=== PATIENT | female | born 1970 | race Caucasian/White ===

== ENCOUNTER 2017-03-16 11:10 | Observation (INO) | payer OTHER ==
[~2017-03-16] VITALS: Ht 180.3 cm; Wt 152.2 kg
--- NOTE | ~2017-03-16 | CATH ---
Cardiac Diagnostic Report Demographics Patient Name OLY Velazquez Gender Female Date of 1970 Age 46 year(s) Patient Number [id number] Date of Study 03/16/2017 Visit Number [id number] Room Number G6311 [place] [id number] Ht 180.34 cm Wt 153.31 kg Referring Efstratiou Primary Physician Physician Lakia Santiago MD Performing Efstratiou Secondary Physician Physician Lakia Hoover MD Diagnostic Efstratiou Assisting Physician Physician Lakia Hoover MD Interventional Physician Complaint Inspector Physician Findings and Conclusions Diagnostic Findings and Conclusion Angiographically normal coronaries Diagnostic Recommendations Risk factor modification Procedure Description The patient was brought to the diagnostic cardiac catheterization-EP laboratory in the fasting, non-sedated state. Informed consent was obtained in the written and verbal form after the risks and benefits were explained. The patient had no further questions and agreed to proceed. The planned puncture-incision site(s) were shaved and prepped with ChloraPrep and draped in the usual sterile manner. Conscious sedation, supplemental oxygen, and pain control medications were delivered by a registered nurse under physician guidance. Surface ECG rhythm, blood pressure measurement, and pulse oximetry were monitored throughout the procedure. Arterial access. The access site was infiltrated with lidocaine. The vessel was entered with the Seldinger technique. A sheath was advanced into the vessel and used for catheter placement. Selective left coronary angiography. A catheter was advanced into the left coronary vessel ostium under Fluoroscopic guidance. Contrast was injected by hand. Images were obtained in multiple projections. Selective right coronary angiography. A catheter was advanced into the right coronary vessel ostium under fluoroscopic guidance. Contrast was injected by hand. Images were obtained in multiple projections. Left heart catheterization. A catheter was advanced across the aortic valve to the left ventricle under fluoroscopic guidance. Resting hemodynamics were obtained. Arterial artery hemostasis was achieved. The patient was transferred to a regular nursing floor via cart accompanied by a nurse. The patient left the laboratory in stable condition. Diagnostic Cath Status: Urgent Procedure Procedure Type Diagnostic procedure:Angiography:, Coronary Angios w/[facility] Indications: Unstable angina and Chest pain. The procedure was explained in detail to the patient. Risks, complications and alternative treatments were reviewed. Written consent was obtained. Angiographic Findings Dominance: Right Cardiac Arteries and Lesion Findings LMCA: Normal (0% Stenosis). LAD: Normal (0% Stenosis). LCx: Normal (0% Stenosis). RCA: Normal (0% Stenosis). Procedure Data Procedure Date Date: 03/16/2017Start: 03:31 PMEnd: 03:54 PM Entry Locations - Retrograde Percutaneous access was performed through the Right Radial artery (Primary location). A 6 Fr sheath was inserted. Hemostasis was successfully obtained using Mechanical Compression. Procedure Medications Order and Administration + + + +-------+ !Time !Medication !Dosage !Route ! + + + +-------03/16/2017 03:28 PM !Versed !1 mg !I.V. ! + + + +-------03/16/2017 03:31 PM !Oxygen !2 l/min !NC ! + + + +-------03/16/2017 03:31 PM !Fentanyl !50 mcg !I.V. ! + + + +-------+ Devices Used - A6 Fr. BS JR 4 Diag. Catheterwas used for:Right coronary angiography. - A6 Fr. BS JL 3.5 Diag. Catheterwas used for:Left coronary angiography. Contrast Material - Isovue [id number] ml Fluoroscopy Time: Diagnostic: 3:00 minutes. Total: 3:00 minutes. Fluoroscopy Dose: Diagnostic: 901 mGy. Total: 901 mGy. Estimated Blood Loss: 15 ml. Medical History Allergies - ASA. - Latex. - NSAIDS. - Other:(Neomycin, Bacitracin, Polymyxin). Risk Factors The patient risk factors include:obesity, hypertension, orally-treated diabetes mellitus, last creatinine: 0.6 mg/dl, creatinine clearance: 277.53 ml/min and Current/Recent(w/in 1 year) tobacco use. Admission Data Admission Date: 03/16/2017 Admission Time: 01:29 PM Admit Source: Emergency department Insurance Payors: Private health insurance. Clinical Evaluation Leading to Procedure - The patient's CAD presentation was assessed as: Unstable angina. - There were no anginal symptoms. Snapshots Hemodynamics Condition: Rest O2 Consumption: Estimated: 255.31Heart Rate: 66 bpm Pressures (mmHg) +-----+ + !Site !Pressure ! +-----+ + !LV !136/7 ,12 ! +-----+ + !LV !138/7 ,14 ! +-----+ + !AO !122/81 (101) ! +-----+ + !LV !136/3 ,11 ! +-----+ + !AO !116/81 (98) ! +-----+ + Valve Gradients and Areas + +---------+---------+---------+ +---------+ + !Valve !Peak !Mean !Area !Index !Flow !Source ! + +---------+---------+---------+ +---------+ + !Aortic !15 !10 ! ! ! ! ! + +---------+---------+---------+ +---------+ + !Aortic !15 !10 ! ! ! ! ! + +---------+---------+---------+ +---------+ + Shunts Oxygen Values O2 Capacity 201.28 O2 Consumption 255.31 Discharge Data Discharge Date: 03/17/2017 Hospital Status: Inpatient Signatures dtt: Kahlil Snow dtd: 03/16/17 1531 Physician Self Edit
--- NOTE | ~2017-03-16 | ER ---
PATIENT'S NAME: SHANNON ALDRIDGE [facility] AGE: 46 Y [address] ROOM: [place] [address] LOCATION: GPCU ADMIT DATE: 03/16/2017 ER/Outpatient Report DISCHARGE DATE: FAMILY PHYSICIAN: KIMBERLEE GARCÍA MD ATTENDING PHYSICIAN: Flaco CAIN Time of Arrival: 1110 hours. Time of Evaluation: 1113 hours. CHIEF COMPLAINT: Chest pain. HISTORY OF PRESENT ILLNESS: The patient is a 46-year-old female, who presents to the emergency department today with a chief complaint of chest pain. She reports this started initially last night one day prior to arrival. She reports it is worse with exertion. It is a sharp, tightness type pain on the left side of her chest. She did have some radiation to her jaw. She reports she has had a couple episodes today as well. Denies any diaphoresis. No nausea or vomiting. Does report some shortness of breath with this as well. The pain is currently 2/10 in severity. PAST MEDICAL HISTORY: 1. Cjp-uvvmktr-tpgtnjkfu diabetes. 2. Asthma. 3. Dyslipidemia. 4. Factor V Leiden. 5. PACs. 6. DVT, left leg. 7. Reactive airway disease. PAST SURGICAL HISTORY: 1. Steroid epidural, L4-L5 and she has also had placement of [place] filter. 2. She has had rotator cuff. 3. Right shoulder x2. 4. Ankle. 5. Knee. 6. Appendectomy. 7. Cholecystectomy. 8. Left ovary after cyst rupture. 9. Tonsils. SOCIAL HISTORY: The patient smokes half a pack to a pack a day. Drinks alcohol rarely. PATIENT'S NAME: SHANNON ALDRIDGE [facility] AGE: 46 Y [address] ROOM: [address] [address] LOCATION: GPCU ADMIT DATE: 03/16/2017 ER/Outpatient Report DISCHARGE DATE: FAMILY PHYSICIAN: KIMBERLEE GARCÍA MD ATTENDING PHYSICIAN: Flaco CAIN Denies any illicit drug use. ALLERGIES: LATEX, NEOSPORIN, AND CARDIZEM. MEDICATIONS: Please see list. PRIMARY CARE DOCTOR: Kimberlee García MD FIELD OPERATIONS SUPERVISOR: Nadir Crooks MD REVIEW OF SYSTEMS: All systems are reviewed by myself are negative with the exception of those discussed in the HPI and past medical history. PHYSICAL EXAMINATION: VITAL SIGNS: Pulse 72, respiratory rate 16, temperature 98.9, blood pressure 174/85, and oxygen saturation 94% on room air. GENERAL: The patient is a 46-year-old female, who appears stated age, in no acute distress. Obese. HEENT: Normocephalic and atraumatic. Pupils are equal, round, and reactive to light and accommodation. Extraocular motions are intact. Nares are patent bilaterally. TMs are clear. Oropharynx is clear. NECK: Supple. There is no nuchal rigidity. No JVD. CARDIOVASCULAR: Regular rate and rhythm. No murmurs, rubs, or gallops. LUNGS: Clear to auscultation bilaterally. No wheezes, rales, or rhonchi. ABDOMEN: Soft, nontender, and nondistended. No rebound, rigidity, or guarding. MUSCULOSKELETAL: The patient moves all 4 extremities. 5/5 muscle strength. SKIN: Warm and dry. There are no rashes or lesions noted. LABORATORY DATA AND IMAGING STUDIES: Labs and x-rays are obtained. EKG is obtained, interpreted by myself, at 1125 hours shows sinus rhythm with a rate of 71, normal axis, normal interval. No ST elevation, ST depression, or T-wave inversions. CBC is normal except for a white blood cell count of 12.3. PTT is 35, PT is 17.5, and INR is 1.66. D- dimer is normal. CMP is unremarkable. Alkaline phosphatase is normal. AST is 47, and ALT is normal. Cardiac enzymes are normal. Magnesium is normal. ProBNP is normal. Chest x-ray shows no acute process. IMPRESSION: 1. Chest pain, rule out acute coronary syndrome. PATIENT'S NAME: SHANNON ALDRIDGE [facility] AGE: 46 Y [address] ROOM: [address] [address] [facility]: [facility] ADMIT DATE: 03/16/2017 ER/Outpatient Report DISCHARGE DATE: FAMILY PHYSICIAN: KIMBERLEE GARCÍA MD ATTENDING PHYSICIAN: Flaco CAIN 2. Initial visit. EMERGENCY DEPARTMENT COURSE: The patient was brought back to the examination room. Seen and evaluated by myself. IV was established. Laboratory analysis and imaging are obtained as described above. The patient is given aspirin orally. She is given nitroglycerin tablet with resolution of the patient's symptoms. I have discussed the case with Dr. Cain, who has seen and evaluated the patient down here in the emergency department. We have discussed the case. Dr. Cain has discussed the case with Dr. Snow, the test evaluator. Dr. Snow has seen and evaluated the patient down here in the emergency department. He will proceed directly to cardiac catheterization. Please see their dictations. DISPOSITION: The patient is admitted under the care of the Hospitalist Service in consultation with Dr. Snow. DO NESTOR COLEMAN/modl /[id number] d: 03/16/172141 t: 03/20/17 1023, OUTPATIENT REPORT
--- NOTE | ~2017-03-16 | CON ---
PATIENT'S NAME: SHANNON ALDRIDGE [facility] AGE: 46 Y [address] ROOM: [place] [address] LOCATION: GPCU ADMIT DATE: 03/16/2017 Consultation DISCHARGE DATE: FAMILY PHYSICIAN: KIMBERLEE GARCÍA MD ATTENDING PHYSICIAN: Flaco DOHERTY DATE OF CONSULTATION: 03/17/2017 REFERRING PHYSICIAN: Kahlil Snow MD REASON FOR CARDIOLOGY CONSULT: Chest pain. HISTORY OF PRESENT ILLNESS: This is a 46-year-old female who presented to the [facility] Emergency Department on 03/16/2017 with complaints of chest pain that radiated from her left chest up into her jaw. She described it as tightness and it became worse with activity. She had some improved relief from the pain with nitroglycerin. She has a past medical history including factor V Leiden deficiency, DVT, and PE with an IVC filter. She also has hypertension, diabetes mellitus type 2, hyperlipidemia, asthma, obstructive sleep apnea, and obesity. She was evaluated in the emergency department by Dr. Snow and plan was made to take her urgently to the catheterization suite for evaluation of coronary anatomy. She is currently status post heart catheterization without intervention and had normal coronary anatomy and flow. At this time, she is resting comfortably in bed and has no further complaints of chest pain. PAST MEDICAL HISTORY: As listed in the HPI. PAST SURGICAL HISTORY: 1. Appendectomy. 2. Tonsillectomy. 3. Cholecystectomy. 4. Oophorectomy. FAMILY HISTORY: Positive history of factor V Leiden disorder. Her father also had a history of coronary artery disease. SOCIAL HISTORY: The patient is a current daily smoker. She smokes 6 to 8 cigarettes per day and has done so for the last 15 years. She also admits to alcohol use on one day per week, normally she will have only 1 drink. No history of illicit drug PATIENT'S NAME: SHANNON ALDRIDGE [facility] AGE: 46 Y [address] ROOM: [place] [address] LOCATION: GPCU ADMIT DATE: 03/16/2017 Consultation DISCHARGE DATE: FAMILY PHYSICIAN: KIMBERLEE GARCÍA MD ATTENDING PHYSICIAN: CHAS,Dagmawe use. CURRENT MEDICATIONS: 1. Coumadin. 2. Dulera 2 puffs inhaled twice daily. 3. Spiriva 2 puffs inhaled daily. 4. Aspirin 81 mg p.o. daily. 5. Chantix 1 mg p.o. twice daily. 6. Coreg 9.375 mg p.o. twice daily. 7. Lipitor 40 mg p.o. daily in the evening. 8. Plexus supplement. 9. X-Factor daily. 10. Protonix 40 mg p.o. daily in the evening. 11. NovoLog subcu on a mild sliding scale per a.c. and h.s. Accu-Cheks. MEDICATION ALLERGIES: 1. NSAIDS causing esophageal erosion. 2. Aspirin intolerance due to her previous history of esophageal erosions. 3. Neomycin causing blisters. REVIEW OF SYSTEMS: Pertinent positives of review of systems are listed in HPI. All other review of systems evaluated and negative. PHYSICAL EXAMINATION: VITAL SIGNS: Temperature 97.8, pulse 65, respirations 16, blood pressure 137/73, O2 saturation 93% on 2 L nasal cannula. The patient weighs 152.2 kilograms. SKIN: [place], warm, and dry. EYES: Sclerae clear. No xanthelasmas. ENT: Oral mucosa is pink and moist. No jugular venous distention or carotid bruits. CHEST: Respirations are even and unlabored. Lungs are clear to auscultation. Lung sounds are diminished to bilateral lower lobes. HEART: Regular rate and rhythm. Normal S1 and S2. No murmurs, rubs, or gallops. ABDOMEN: Soft, nontender. MUSCULOSKELETAL: Gait is normal. EXTREMITIES: Peripheral pulses palpable. No clubbing, cyanosis, or edema. Does have noted lower extremities venous staining. PSYCHIATRIC: Alert and oriented. Mood and affect are appropriate. IMPRESSION AND PLAN: Per Dr. Snow: 1. Unstable angina and chest pain. Currently status post selective coronary PATIENT'S NAME: SHANNON ALDRIDGE [facility] AGE: 46 Y [address] ROOM: [address] [place], [place] [address] [facility] ADMIT DATE: 03/16/2017 Consultation DISCHARGE DATE: FAMILY PHYSICIAN: KIMBERLEE GARCÍA MD ATTENDING PHYSICIAN: Flaco DOHERTY angiography without coronary intervention. She is on aspirin, beta- mitchell, and statin. 2. History of pulmonary embolism with long-term anticoagulation with Coumadin and has an IVC filter in place. 3. History of Factor 5 Leiden disorder. 4. Hyperlipidemia. 5. Obstructive sleep apnea. 6. Diabetes mellitus. We will continue to monitor, evaluate, and treat as appropriate. Thank you for this consult. Thank you for allowing [facility] to interact in the care of this patient. GA RIVAS APRN FOR ANA-MD BRENDA DUDLEY/modl /[id number] d: 03/17/17 0905 t: 03/27/17 1250, CONSULTATION REPORT
--- NOTE | ~2017-03-16 | ECHO ---
Transthoracic Echocardiography Report (TTE) Demographics Patient Name SHANNON ALDRIDGE Date of Study 03/16/2017 Patient Number [id number] Visit Number [id number] Date of 1970 Room Number G6311 Gender Female Number Age 46 year(s) Referring Lupe Santiago MD Business Education Professor Ade RVT, RDCS Physician Renetta Physician Interpreting Efstratiou Panayotis A Tool Crib Lead Physician Supervising Ordering Efstratiou Panayotis A MD/MLP Physician Nurse Stress Warp Knitter Helper Conclusions Contractility Score Summary Normal Left Ventricular contractility was noted. Summary The estimated left ventricular ejection fraction is 60-65%. The left ventricle is mildly dilated . Moderate concentric left ventricular hypertrophy. Diastolic assessment reveals Grade I diastolic dysfunction. The left atrium is mildly dilated. Borderline right atrial enlargement. Procedure Type of Study TTE procedure:2D Echocardiogram, M-Mode, Doppler , Color Doppler. Procedure Date Date: 03/16/2017 Start: 05:12 PM Study Location: Inpatient Portable Technical Quality: Adequate visualization Indications:Chest pain. Appropriate Use Criteria: 9 Patient Status: Routine HR: 66 bpm BP: 136/84 mmHg Allergies - ASA. - Latex. - NSAIDS. - Other:(Neomycin, Bacitracin, Polymyxin). M-Mode/2D Measurements LV Diastolic Dimension: 5.41 cm LV Systolic Dimension: 3.58 cm LV Septum Diastolic: 1.56 cm LV PW Diastolic: 1.41 cm AO Root Dimension: 2.2 cm Cardiac Output: 4.51 l/min AV Cusp Separation: 1.9 cm RV Diastolic Dimension: 2.72 cm LA volume: 58 ml LVOT: 1.9 cm LVOT VTI: 24.1 cm TAPSE: 3.92 cm LV Stroke volume: 68.3 ml Doppler Measurements AV Peak Velocity: 1.19 m/s MV Peak E-Wave: 0.73 m/s AV Peak Gradient: 5.66 mmHg MV Peak A-Wave: 0.89 m/s AV Mean Gradient: 4 mmHg MV E/A Ratio: 0.82 LVOT Peak Velocity: 1.06 m/s MV P1/2t: 78 msec TR Gradient:11.83 mmHg PV Peak Velocity: 0.75 m/s Estimated RAP:8 mmHg PV Peak Gradient: 2.26 mmHg Estimated RVSP: 20 mmHg Estimated PASP: 19.83 mmHg E' Septal Velocity: 0.07 m/s A' Septal Velocity: 0.12 m/s E' Lateral Velocity: 0.08 m/s A' Lateral Velocity: 0.11 m/s Findings Left Ventricle The left ventricle is mildly dilated . Moderate concentric left ventricular hypertrophy. Diastolic assessment reveals Grade I diastolic dysfunction. Right Ventricle Mildly dilated right ventricle. Normal right ventricular systolic performance. Left Atrium The left atrium is mildly dilated. Right Atrium Borderline right atrial enlargement. Mitral Valve Trivial mitral regurgitation by color Doppler. Aortic Valve Normal aortic valve structure and function. Tricuspid Valve Trivial tricuspid regurgitation by color Doppler. Pulmonic Valve The pulmonic valve is not well visualized. Pericardial Effusion No evidence of pericardial effusion. Pleural Effusion No evidence of pleural effusion. Contractility Score LV regional wall motion:(0-Non visualized 1-Normal 2-Hypokinesis 3-Akinesis 4-Dyskinesis 5-Aneurysm) Signature dtt: Kahlil Snow dtd: 03/16/17 1462 Physician Self Edit
--- NOTE | ~2017-03-16 | HP ---
PATIENT'S NAME: RAMIREZ ALDRIDGEELLE Marcus [facility] AGE: 46 Y [address] ROOM: [place] [address] LOCATION: GPCU ADMIT DATE: 03/16/2017 History & Physical DISCHARGE DATE: FAMILY PHYSICIAN: KIMBERLEE GARCÍA MD ATTENDING PHYSICIAN: Flaco DOHERTY DATE OF SERVICE: CHIEF COMPLAINT: Chest pain. HISTORY OF PRESENT ILLNESS: The patient is a 46-year-old female with past medical history of hypertension, diabetes mellitus type 2, factor V Leiden with DVT and PE with IVC filter, hyperlipidemia, asthma, and obesity, who presents here with chest pain. The patient reports that she experienced chest pain this morning. She described chest pain as left-sided tightness, radiating to the jaw, and worsened by activity. The patient reports that chest pain improved with nitroglycerin. The patient is currently chest pain-free and maximum chest pain was 6/10. The patient denies fever, chills, cough, abdominal pain, nausea, diarrhea, dizziness, and vision change. PAST MEDICAL HISTORY: 1. Hypertension. 2. Diabetes mellitus type 2. 3. Factor V Leiden. 4. History of PE and DVT. 5. Hyperlipidemia. 6. Asthma. 7. Obesity. 8. Obstructive sleep apnea. PAST SURGICAL HISTORY: 1. Tonsillectomy. 2. Cholecystectomy. 3. Appendectomy. 4. Oophorectomy. 5. History of coronary angiogram. FAMILY HISTORY: Positive for factor V Leiden. Father had history of coronary disease at age 60. SOCIAL HISTORY: The patient is positive for smoking. 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 ROOM: [address] [address] LOCATION: GPCU ADMIT DATE: 03/16/2017 History & Physical DISCHARGE DATE: FAMILY PHYSICIAN: KIMBERLEE GARCÍA MD ATTENDING PHYSICIAN: Flaco DOHERTY [facility]. MEDICATIONS: See MAR. REVIEW OF SYSTEMS: All systems have been reviewed and are negative, except for what I mentioned in the HPI. PHYSICAL EXAMINATION: VITAL SIGNS: Afebrile, blood pressure 150/81, heart rate 72, saturating 95% on room air. GENERAL APPEARANCE: The patient alert and awake, in no acute distress. HEENT: Head: Normocephalic, atraumatic. Nose: No nasal discharge. Ears: No ear discharge. Eyes: Extraocular muscles intact. CHEST: Clear to auscultation bilaterally. HEART: Regular rate and rhythm. No murmurs, rubs, or gallops. ABDOMEN: Soft, nontender, and nondistended. Bowel sounds present. SKIN: Bilateral lower extremity venous stasis changes. MUSCULOSKELETAL: Range of motion intact. DRUM MAKER: The patient alert and oriented x3. Motor and sensory grossly intact. LABORATORY DATA: Troponin x1 negative. White blood cell count of 12.3, hemoglobin of 12.8, platelet of 265. Sodium of 139, potassium of 4, bicarb 24, creatinine of 0.6, INR of 1.66. IMAGING: EKG shows normal sinus rhythm. No ST and T-wave changes concerning for ischemia. Negative D-dimer. ASSESSMENT AND PLAN: 1. Typical chest pain. The patient is a 46-year-old female with past medical history of hypertension, diabetes mellitus type 2, factor V Leiden, history of pulmonary embolism and deep venous thrombosis, hypertension, and obesity, who presents here with typical chest pain. Due to the patient's comorbid condition and high pretest probability, Cardiology was consulted. Discussed case with Cardiology. The patient is scheduled for cardiac cath this afternoon. We will follow the cardiac cath results closely. 2. Diabetes mellitus type 2. We will hold Glucophage. Due to cath, we will PATIENT'S NAME: SHANNON ALDRIDGE [facility] AGE: 46 Y [address] ROOM: [place] [address] LOC[facility]: [facility] ADMIT DATE: 03/16/2017 History & Physical DISCHARGE DATE: FAMILY PHYSICIAN: KIMBERLEE GARCÍA MD ATTENDING PHYSICIAN: Flaco DOHERTY start the patient on sliding scale insulin. 3. History of pulmonary embolism and deep venous thrombosis with factor V Leiden. Soon after the cardiac cath, we will reassess starting her on Coumadin. 4. Hyperlipidemia. We will continue statin. 5. Asthma. Continue home regimen. 6. Obstructive sleep apnea. We will continue CPAP. 7. History of tobacco use. Greater than 3 minutes was spent on smoking cessation. The patient is currently not ready to stop and is currently on Chantix. We will continue Chantix. 8. Obesity, ongoing. Greater than 30 minutes was spent on patient care. Assessments and plan were discussed with the patient and Cardiology. We will admit the patient. The patient is scheduled for coronary angiogram. MD RITU WALKER/chelly /[id number] D: [id number] T: [id number] HISTORY & PHYSICAL
--- NOTE | ~2017-03-16 | DS ---
PATIENT'S NAME: SHANNON ALDRIDGE [facility] AGE: 46 Y [address] ROOM: [facility] [place], [place] [address] LOCATION: GPCU ADMIT DATE: 03/16/2017 Discharge Summary DISCHARGE DATE: 03/17/2017 FAMILY PHYSICIAN: Jack Andrade MD ATTENDING PHYSICIAN: Ant Sam PRINCIPAL DIAGNOSIS: Chest pain with normal coronary. SECONDARY DIAGNOSES: 1. Type 2 diabetes on insulin. 2. Factor V Leiden. 3. History of pulmonary embolism. She is status post IVC filter placement in 1993. 4. Morbid obesity. HOSPITAL COURSE: This is a 46-year-old lady with above mentioned past medical history, who presented to the emergency department with chest pain. Initial evaluation revealed no significant ST-T wave changes and negative cardiac biomarkers. Cardiology was consulted given the typical nature of chest pain and risk factors. Cardiology did catheterization on this lady and per verbal report, she had normal coronaries. She was discharged from the hospital the next day. No medication changes were made. She was given a shot of Lovenox therapeutic before leaving the hospital and she was advised to take Lovenox until the INR becomes 2-3. Her INR on the day of the discharge was 1.6. Her hemoglobin A1c was 8.4 in the hospital, which have risen from the past. She is on Trulicity as well as metformin. We will advise follow up with Dr. Andrade. DIET: Diabetic diet. ACTIVITY: As tolerated. MEDICATIONS: No changes to home medications. MD NIYAH MARIE/chelly /[id number] d: 03/17/17 1218 t: 03/27/17 1509, DISCHARGE SUMMARY
[~2017-03-16 11:10] MED LIST: ALBUTEROL2.5 MG/0.5 INH; COREG6.25 MG PO; COUMADIN ** IA5 MG PO; COUMADIN **IA7.5 MG PO; GLUCOPHAGE1000 MG PO; GLUCOPHAGE500 MG PO; HUMIBID LA (MU600 MG PO; MEDROL4 MG PO
[2017-03-16 11:48] LABS: BASOPHIL # 0.1 K/uL (0.0-0.2); BASOPHIL % 0.8 %; EOSINOPHIL # 0.4 K/uL (0.0-0.5); EOSINOPHIL % 3.1 %; HEMATOCRIT 45.3 % (33.0-46.0); HEMOGLOBIN 14.8 g/dL (10.0-15.0); IMMATURE GRANULOCYTE # 0.1 K/uL (0.0-0.3); IMMATURE GRANULOCYTE % 0.7 %; LYMPHOCYTE # 3.1 K/uL (0.8-4.0); LYMPHOCYTE % 25.3 %; MCH 27.3 pg (27.0-34.0); MCHC 32.7 gm/dL (32.0-36.5); MCV 83.6 fl (83.0-98.0); MONOCYTE # 0.9 K/uL (0.0-1.0); MONOCYTE % 7.1 %; MPV 9.6 fl (9.4-12.4); NEUTROPHIL # (ANC) 7.8 K/uL (1.8-7.8); NRBC % 0 /100WBC (0-0.00); PLATELET COUNT 265 K/uL (150-450); RBC 5.42 M/uL (3.50-5.50); RDW-CV 16.8 % (11.9-14.6); WBC 12.3 K/uL (4.0-11.0)
[2017-03-16 12:00] LABS: INR - (THERAPEUTIC) 1.66 (0.92-1.07); PROTIME 17.5 SECONDS (9.8-11.4); PTT 35 SECONDS (25-32)
[2017-03-16 12:25] LABS: ALBUMIN 3.4 gm/dL (3.5-5.0); ALK PHOS 126 IU/L (33-138); ALT 66 IU/L (12-78); AST 47 IU/L (10-40); BLOOD UREA NITROGEN 5 mg/dL (6-24); CALCIUM 8.9 mg/dL (8.5-10.5); CHLORIDE 105 mMol/L (96-110); CO2 24 mMol/L (22-32); CPK 95 IU/L (21-215); CREATININE 0.6 mg/dL (0.5-1.1); ESTIMATED GFR (MDRD EQUATION) > 60; MAGNESIUM 2.2 mg/dL (1.8-2.6); SODIUM 139 mMol/L (135-145); TOTAL BILIRUBIN 0.5 mg/dL (0.0-1.5); TOTAL PROTEIN 6.9 g/dL (6.0-8.4)
[2017-03-16 14:07] LABS: CPK 93 IU/L (21-215)
[2017-03-16] MEDS ORDERED: CHANTIX1 MG PO (18:15)
[2017-03-16] MEDS ORDERED: SPIRIVA RESPIMAT4 G1 INH (18:15)
[2017-03-16] MEDS ORDERED: LIPITOR20 M1 PO (18:16)
[2017-03-16] MEDS ORDERED: PROAIR HFA8.5 GM INH (18:16)
[2017-03-16] MEDS ORDERED: TRULICITY0.75 MG/0. SUB-Q (18:17)
[2017-03-16] MEDS ORDERED: SYMBICORT 16010.2 GM INH (18:18)
[2017-03-16] MEDS ORDERED: PLEXUS SUPPLEMENTS PO (18:20)
[2017-03-16] MEDS ORDERED: X FACTOR PO (18:21)
--- NOTE | 2017-03-16 19:55 | NUR ---
Patient is a 46 year old woman who presented to ER with shortness of breath and left sided chest pain that radiated up the left jaw. Patient was given 4 baby aspirins and 1 nitro and pain subsided. Prior to arriving to PCU patient was taken to lab instructor. Right radial wrist approach, site is soft with good pulse. No intervention in lab instructor. 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 Patient stated that she does use CPAP at night and family will bring it in. Patient has type 2 diabetes, non insulin at home. Patient is alert and oriented X 3. ER placed peripheral IV to right hand. Vitals upon arrival to PCU 160/95, HR 73, O2 93, Temp 98.2, RR 16. Up ad marysol in room.
--- NOTE | 2017-03-17 04:07 | NUR ---
Significant Event: Patient A/Ox3. VSS on RA/home CPAP. Patient is up independently. No complaints of chest pain. R) radial band removed and replaced with gauze and coban. site is soft. CSM WNL. IV to R) hand is SL. HR 60s. SBP 130s-150s. Follow up: Home today?
[2017-03-17 05:31] LABS: BASOPHIL # 0.1 K/uL (0.0-0.2); BASOPHIL % 0.8 %; EOSINOPHIL # 0.5 K/uL (0.0-0.5); HEMATOCRIT 44.4 % (33.0-46.0); HEMOGLOBIN 14.3 g/dL (10.0-15.0); IMMATURE GRANULOCYTE # 0.1 K/uL (0.0-0.3); IMMATURE GRANULOCYTE % 0.6 %; LYMPHOCYTE # 3.5 K/uL (0.8-4.0); LYMPHOCYTE % 30.3 %; MCH 27.5 pg (27.0-34.0); MCHC 32.2 gm/dL (32.0-36.5); MCV 85.4 fl (83.0-98.0); MONOCYTE # 0.8 K/uL (0.0-1.0); MONOCYTE % 7.3 %; MPV 9.6 fl (9.4-12.4); NEUTROPHIL # (ANC) 6.6 K/uL (1.8-7.8); NRBC % 0 /100WBC (0-0.00); PLATELET COUNT 240 K/uL (150-450); RDW-CV 16.8 % (11.9-14.6); WBC 11.5 K/uL (4.0-11.0)
[2017-03-17 05:45] LABS: INR - (THERAPEUTIC) 1.62 (0.92-1.07); PROTIME 17.1 SECONDS (9.8-11.4)
[2017-03-17 05:50] LABS: ALBUMIN 3.3 gm/dL (3.5-5.0); ALK PHOS 116 IU/L (33-138); ALT 61 IU/L (12-78); ANION GAP 16.1 (10.0-19.0); AST 37 IU/L (10-40); CALCIUM 8.9 mg/dL (8.5-10.5); CHLORIDE 105 mMol/L (96-110); CO2 25 mMol/L (22-32); CREATININE 0.6 mg/dL (0.5-1.1); ESTIMATED GFR (MDRD EQUATION) > 60; POTASSIUM 4.1 mMol/L (3.7-5.1); SODIUM 142 mMol/L (135-145); TOTAL BILIRUBIN 0.6 mg/dL (0.0-1.5); TOTAL PROTEIN 6.5 g/dL (6.0-8.4)
[2017-03-17 05:55] LABS: BLOOD UREA NITROGEN 8 mg/dL (6-24)
--- NOTE | 2017-03-17 10:47 | NUR ---
Introduced self and role of care management to patient. [place] her 13 year old son. She plans home today. Denies discharge needs at this time.
[2017-03-17] MEDS ORDERED: LOVENOX 3030 MG/0.3 SUB-Q (11:13)
--- NOTE | 2017-03-17 11:56 | NUR ---
PATIENT A/OX3, VSS ON ROOM AIR. PT. IS UP AD YANETH IN ROOM, WALKS HALLS SEVERAL TIMES THROUGHOUT SHIFT. RIGHT RADIAL HEART CATH SITE HAS NO HEMATOMA OR OOZING NOTED TO SITE, DRESSING CHANGED TO BAND-AID ONLY. PT. IS IN A BIG HURRY TO GET HOME AND TO HAVE D/C PAPERWORK DONE. DISMISSAL INSTRUCTIONS AND POST RADIAL CATH INSTRUCTIONS GONE OVER WITH PATIENT, NO FURTHER QUESTIONS AT THIS TIME, PATIENT IS KNOWLEDGEABLE ALREADY. PATIENT REFUSED LOVENOX SHOT AND 1100 ACCUCHECK. ALL BELONGINGS SENT HOME WITH PATIENT. IV REMOVED FOR RIGHT HAND WITHOUT COMPLICATION. DIABETES ASSESSMENT SHEET FILLED OUT BY PATIENT & A COPY WAS GIVEN AT DISMISSAL.
== END 2017-03-17 11:39 | disposition disaster alternative care site (69) ==
LOC: GMED 11:10 → GPCU 13:29
PROVIDERS: Emergency Medicine; Internal Medicine Cardiovascular Disease; ADMIT Internal Medicine
DX: I20.0 Unstable angina (principal); E11.9 Type 2 diabetes mellitus without complications; I10 Essential (primary) hypertension; E78.5 Hyperlipidemia, unspecified; D68.51 Activated protein C resistance; J45.909 Unspecified asthma, uncomplicated; G47.33 Obstructive sleep apnea (adult) (pediatric); F17.210 Nicotine dependence, cigarettes, uncomplicated; E66.01 Morbid (severe) obesity due to excess calories; Z68.42 Body mass index [BMI] 45.0-49.9, adult; Z86.711 Personal history of pulmonary embolism; Z91.040 Latex allergy status; Z88.5 Allergy status to narcotic agent; Z90.49 Acquired absence of other specified parts of digestive tract; Z98.890 Other specified postprocedural states
CPT/HCPCS: C1894; G0378; J1644; J2250; J3010; J7030

== ENCOUNTER → 2017-05-01 | Outpatient (CLI) | payer OTHER ==
[~2017-05-01] MED LIST changes: +CHANTIX1 MG PO; +LIPITOR20 M1 PO; +LOVENOX 3030 MG/0.3 SUB-Q; +PLEXUS SUPPLEMENTS PO; +PROAIR HFA8.5 GM INH; +SPIRIVA RESPIMAT4 G1 INH; +SYMBICORT 16010.2 GM INH; +TRULICITY0.75 MG/0. SUB-Q; +X FACTOR PO
== END | disposition disaster alternative care site (69) ==
LOC: GBCOE 15:21
DX: Z12.31 Encounter for screening mammogram for malignant neoplasm of breast (principal)
CPT/HCPCS: G0202

== ENCOUNTER 2017-05-27 20:51 | Emergency (ER) | payer OTHER ==
--- NOTE | ~2017-05-27 | ER ---
PATIENT'S NAME: SHANNON ALDRIDGE [facility] AGE: 47 Y [address] ROOM: [place] [address] LOCATION: [facility] ADMIT DATE: 05/27/2017 ER/Outpatient Report DISCHARGE DATE: 05/27/2017 FAMILY PHYSICIAN: Jack Andrade MD ATTENDING PHYSICIAN: Joseph Castellanos Time of Arrival/Admission: 2050 hours. Time of Evaluation: 2114 hours. CHIEF COMPLAINT: Fever, fatigue. HISTORY OF PRESENT ILLNESS: Shannon is a 47-year-old, female, who presents to the emergency room with a fever intermittently since this past Monday along with increased fatigue, achiness to her neck, and just having some general malaise. The patient did see her primary care physician, Dr. Andrade yesterday, he ran some labs in which her white blood cell count was within normal limits, but she reports her liver enzymes were mildly elevated. He did want her to return on Monday, and go to the ER sooner if anything that was more concerning. The patient reports earlier today she had a fever of 102; upon presentation, it was 100.7. The patient was concerned with the fevers not going down. The patient is having mild headaches particularly when the fever goes up, myalgias, some generalized neck pain, chills, and fatigue. She denies any cold symptoms, sore throat, nasal drainage, abdominal pain, nausea, vomiting, and/or diarrhea. The patient has not had any recent travel, did attend the fair last Monday, but other than that, has had a normal routine. She currently is on Coumadin in which Dr. Andrade adjusted yesterday as her level was subtherapeutic. He did raise it to 7.5 mg daily. The patient is a type 2 diabetic, non-insulin dependent. Her hemoglobin A1c yesterday was 8.1. She did not check her sugars yesterday into today. PAST MEDICAL HISTORY: 1. Hypertension. 2. Type 2 diabetes mellitus, non-insulin dependent. 3. Factor V Leiden. 4. History of PE and DVT. 5. Hyperlipidemia. 6. Asthma. 7. Morbid obesity. 8. Obstructive sleep apnea, currently does wear a CPAP. 9. Postoperative tonsillectomy. 10. Postoperative cholecystectomy. 11. Postoperative appendectomy. 12. Postoperative oophorectomy. PATIENT'S NAME: SHANNON ALDRIDGE [facility] AGE: 47 Y [address] ROOM: [place] [address] LOCATION: ED ADMIT DATE: 05/27/2017 ER/Outpatient Report DISCHARGE DATE: 05/27/2017 FAMILY PHYSICIAN: Jack Andrade MD ATTENDING PHYSICIAN: Joseph Castellanos 13. Postoperative heart catheterization, February 2017 that was negative. ALLERGIES: 1. CARDIZEM. 2. NEOSPORIN. CURRENT MEDICATIONS: Please see her medication list per the nurse's note. Her Coumadin was raised to 7.[address] Andrade as of yesterday 05/26/2017. She has not taken her Coumadin as of today yet. SOCIAL HISTORY: The patient is a smoker, about 1/2 to 1 pack per day. She tells myself she is trying to cut down. Alcohol use is rare, denies any illicit drug use. FAMILY HISTORY: There is a family history of factor V Leiden. Father had a history of coronary artery disease. REVIEW OF SYSTEMS: All systems were reviewed by myself and were negative with the exception of those noted in the HPI. The patient denies any dizziness, chest pain, shortness of breath, vertigo, or visual changes. PHYSICAL EXAMINATION: VITAL SIGNS: Current temperature is 100.7, pulse is 97, respirations 16, and blood pressure initially 176/100, rechecked and it was much improved. She is 93% on room air. GENERAL APPEARANCE: Shannon is alert oriented x4, cooperative, in no acute distress. SKIN: Overall is within normal limits. There are no rashes, bug bites, or other concerning lesions. She denies any of these over the past week. HEENT: Eyes; sclerae are not icteric. Pupils equal, round, and reactive to light. EOMs intact. Ears; ear canals are clear. TMs are clear with no redness or effusions noted. Nares are patent. Mouth and Throat; oropharynx is within normal limits. Tongue may be a little dry. It is midline. NECK: Supple, no lymphadenopathy. No thyromegaly appreciated. The patient has full range of motion of her neck. There is no nuchal rigidity noted. She does feel some mild tenderness into her muscles around her neck. CHEST AND LUNGS: Lung sounds are clear throughout. No wheezing or abnormal breath sounds noted. HEART: Regular rhythm, no murmurs appreciated. ABDOMEN: Obese, soft. With soft and deep palpation, there is no pain elicited. No masses, no organomegaly. No CVA tenderness present. EXTREMITIES: Lower extremities, the patient has no lower leg edema. PATIENT'S NAME: SHANNON ALDRIDGE [facility] AGE: 47 Y [address] ROOM: [place] [address] LOCATION: [facility] ADMIT DATE: 05/27/2017 ER/Outpatient Report DISCHARGE DATE: 05/27/2017 FAMILY PHYSICIAN: Jack Andrade MD ATTENDING PHYSICIAN: Joseph Castellanos NEUROLOGIC: Hand grasp equal bilaterally, follows all commands with no focal deficits noted. Gait is steady, normal. LABORATORY DATA: WBC 7.0, hemoglobin 14.9, and platelets 204,000. There is no left or right shift present. Sodium 137, potassium 4.2, and glucose was 120. AST and ALT are elevated at 103 and 143 respectively. This was compared to her prior liver enzymes in February in which these were 37 and 61 respectively. CRP elevated at 12.70. Lipase is normal along with troponin. UA is negative for infection. Lactate is 1.3. Procalcitonin is elevated at 0.48. These results were all reviewed with Dr. Castellanos. IMAGING STUDIES: Chest x-ray, 2 view, was obtained. This was reviewed in conjunction with Dr. Castellanos. Bony structures were intact. Heart size within normal limits. There was no evidence of infiltrates or effusions or other acute abnormalities. Official over-read is pending. ASSESSMENT: 1. Fevers. 2. Viral syndrome, likely. 3. Elevated liver enzymes. 4. Anticoagulation, subtherapeutic. PLAN: The patient had taken some ibuprofen this afternoon, and Dr. Andrade is okay with her doing this with her Coumadin. She will go ahead and take her Coumadin dose of 7.5 mg this evening and we will keep her dose the same. I did review everything with Dr. Castellanos, and we believe she likely is running just some type of virus. There is no alteration in her mental status, no nuchal rigidity, and no neurological findings. 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 She is going to continue to push fluids, Tylenol as needed. Also may use a warm pack to her neck as this is what seems to bother her the most. She knows if she would have any stiffness where she is unable to move her neck and/or the onset of a terrible headache, she will need to return to the ER. She is also going to check her sugars at least a couple times tomorrow. She is to follow up with Dr. Andrade on Monday morning as he had previously had this ordered. She did take a copy of her labs so he can compare her CRP with her liver enzymes. At this point, if these are elevated and/or more I may need a liver ultrasound with further liver studies. The patient verbalizes understanding, appreciative care, and has no concerns to return home. PATIENT'S NAME: SHANNON ALDRIDGE [facility] AGE: 47 Y [address] ROOM: [place] [address] LOCATION: ED ADMIT DATE: 05/27/2017 ER/Outpatient Report DISCHARGE DATE: 05/27/2017 FAMILY PHYSICIAN: Jack Andrade MD ATTENDING PHYSICIAN: Joseph Castellanos APRIL STILL APRN FOR MD WILL HESTER/chelly /[id number] d: 05/28/17 0035 t: 06/14/17 0057, OUTPATIENT REPORT
[2017-05-27 21:17] LABS: BILIRUBIN URINE NEGATIVE (NEGATIVE); BLOOD URINE 10 /UL (NEGATIVE); COLOR URINE YELLOW (YELLOW); GLUCOSE URINE 1000 mg/dL (NEGATIVE); KETONE URINE NEGATIVE (NEGATIVE); LEUKOCYTES URINE NEGATIVE /UL (NEGATIVE); NITRITE URINE NEGATIVE (NEGATIVE); PROTEIN URINE 30 mg/dL (NEGATIVE); SPEC GRAVITY URINE 1.015 (1.003-1.035); TURBIDITY URINE CLEAR (CLEAR); UROBILINOGEN URINE NORMAL (NORMAL)
[2017-05-27 21:30] LABS: BACTERIA URINE FEW (NEGATIVE); RBC URINE 0-2 #/HPF (NEGATIVE); WBC URINE 0-2 #/HPF (NEGATIVE)
[2017-05-27 21:37] LABS: BASOPHIL # 0.1 K/uL (0.0-0.2); BASOPHIL % 0.7 %; EOSINOPHIL % 0.6 %; HEMATOCRIT 45.4 % (33.0-46.0); HEMOGLOBIN 14.9 g/dL (10.0-15.0); IMMATURE GRANULOCYTE # 0.1 K/uL (0.0-0.3); IMMATURE GRANULOCYTE % 1.6 %; LYMPHOCYTE # 1.6 K/uL (0.8-4.0); LYMPHOCYTE % 22.4 %; MCH 27.5 pg (27.0-34.0); MCHC 32.8 gm/dL (32.0-36.5); MCV 83.9 fl (83.0-98.0); MONOCYTE # 0.7 K/uL (0.0-1.0); MONOCYTE % 9.9 %; MPV 9.4 fl (9.4-12.4); NEUTROPHIL # (ANC) 4.5 K/uL (1.8-7.8); NEUTROPHIL % 64.8 %; NRBC % 0 /100WBC (0-0.00); PLATELET COUNT 204 K/uL (150-450); RBC 5.41 M/uL (3.50-5.50); RDW-CV 15.6 % (11.9-14.6)
[2017-05-27 21:45] LABS: INR - (THERAPEUTIC) 1.32 (0.92-1.07); PROTIME 13.9 SECONDS (9.8-11.4)
[2017-05-27 21:59] LABS: ALBUMIN 3.2 gm/dL (3.5-5.0); ALK PHOS 133 IU/L (33-138); ALT 143 IU/L (12-78); ANION GAP 11.2 (10.0-19.0); AST 103 IU/L (10-40); BLOOD UREA NITROGEN 6 mg/dL (6-24); CALCIUM 8.6 mg/dL (8.5-10.5); CHLORIDE 104 mMol/L (96-110); CO2 26 mMol/L (22-32); CREATININE 0.7 mg/dL (0.5-1.1); POTASSIUM 4.2 mMol/L (3.7-5.1); SODIUM 137 mMol/L (135-145); TOTAL PROTEIN 7.1 g/dL (6.0-8.4)
== END 2017-05-27 22:43 | disposition disaster alternative care site (69) ==
LOC: GMED 20:51
PROVIDERS: Nurse Practitioner Family
DX: B34.9 Viral infection, unspecified (principal); R74.8 Abnormal levels of other serum enzymes; R79.1 Abnormal coagulation profile; I10 Essential (primary) hypertension; E11.9 Type 2 diabetes mellitus without complications; E78.5 Hyperlipidemia, unspecified; J45.909 Unspecified asthma, uncomplicated; F17.210 Nicotine dependence, cigarettes, uncomplicated; E66.01 Morbid (severe) obesity due to excess calories; Z88.1 Allergy status to other antibiotic agents; Z88.8 Allergy status to other drugs, medicaments and biological substances; Z86.718 Personal history of other venous thrombosis and embolism; Z86.711 Personal history of pulmonary embolism; Z90.49 Acquired absence of other specified parts of digestive tract; Z90.89 Acquired absence of other organs; Z79.84 Long term (current) use of oral hypoglycemic drugs; Z79.01 Long term (current) use of anticoagulants; Z79.899 Other long term (current) drug therapy

== ENCOUNTER → 2017-05-29 | Outpatient (CLI) | payer OTHER | END | disposition disaster alternative care site (69) | LOC: GRAD 14:38 | DX: R74.8 Abnormal levels of other serum enzymes (principal); K76.0 Fatty (change of) liver, not elsewhere classified; R50.9 Fever, unspecified; R16.1 Splenomegaly, not elsewhere classified; Z90.49 Acquired absence of other specified parts of digestive tract ==